=== PATIENT | female | born 1950 | race Caucasian/White ===

== ENCOUNTER 2018-03-08 09:30 | Outpatient (CLI) | payer MEDICARE | END 2018-03-08 09:31 | disposition home or self-care (01) | LOC: BICMAMMO 09:30 | PROVIDERS: ATTEND Obstetrics & Gynecology | DX: Z12.31 Encounter for screening mammogram for malignant neoplasm of breast (principal) | CPT/HCPCS: 77063; 77067 ==

== ENCOUNTER 2020-11-19 11:03 | Outpatient (CLI) | payer MEDICARE | END 2020-11-19 11:04 | disposition home or self-care (01) | LOC: BICMAMMO 11:03 | PROVIDERS: ATTEND Internal Medicine | DX: Z12.31 Encounter for screening mammogram for malignant neoplasm of breast (principal) | CPT/HCPCS: 77063; 77067 ==

== ENCOUNTER 2020-11-21 08:15 | Outpatient (CLI) | payer MEDICARE | END 2020-11-21 08:16 | disposition home or self-care (01) | LOC: BICMAMMO 08:15 | PROVIDERS: ATTEND Internal Medicine | DX: R92.2 Inconclusive mammogram (principal) | CPT/HCPCS: 76642; 77065; G0279 ==

== ENCOUNTER 2020-12-12 10:21 | Outpatient (CLI) | payer MEDICARE | END 2020-12-12 10:22 | disposition home or self-care (01) | LOC: BICMRI 10:21 | PROVIDERS: ATTEND Internal Medicine | DX: N64.9 Disorder of breast, unspecified (principal); N63.41 Unspecified lump in right breast, subareolar | CPT/HCPCS: 82565; C8908; A9577 ==

== ENCOUNTER 2022-01-30 10:35 | Outpatient (CLI) | payer MEDICARE | END 2022-01-30 10:36 | disposition home or self-care (01) | LOC: BICMAMMO 10:35 | PROVIDERS: ATTEND Internal Medicine | DX: Z12.31 Encounter for screening mammogram for malignant neoplasm of breast (principal) | CPT/HCPCS: 77063; 77067 ==

== ENCOUNTER 2025-02-07 10:15 | Outpatient (CLI) | payer MEDICARE | END 2025-02-07 10:16 | disposition home or self-care (01) | LOC: BICMAMMO 10:15 | PROVIDERS: ATTEND Internal Medicine | DX: Z12.31 Encounter for screening mammogram for malignant neoplasm of breast (principal) | CPT/HCPCS: 77063; 77067 ==